=== PATIENT | female | born 1980 | race Caucasian/White ===

== ENCOUNTER 2025-08-01 08:55 | Emergency (ER) | payer OTHER ==
[~2025-08-01] VITALS: Ht 167.6 cm; Wt 72.1 kg
[2025-08-01] MEDS ORDERED: ASPIRIN 325 MG TABLET ONE (09:11)
[2025-08-01] MEDS: ASPIRIN 325 MG TABLET PO ONE (09:15)
[2025-08-01 09:29] LABS: PLATELET COUNT (AUTO) 280 K/uL (150-450); RED BLOOD CELL COUNT(AUTO) 4.65 MIL/uL (4.0-5.2); RED CELL DISTRIBUTION WIDTH 13.2 % (11.5-15.0); WHITE BLOOD COUNT (AUTO) 10.9 K/uL (4.3-11.0)
[2025-08-01 09:33] LABS: PREGNANCY TEST URINE QUAL NEGATIVE (NEGATIVE)
[2025-08-01 09:35] LABS: CALCIUM, SERUM 9.8 mg/dL (8.5-10.1); CREATININE 0.7 mg/dL (0.6-1.3); SODIUM SERUM 136 mmol/L (136-145); UREA NITROGEN, BLOOD 8 mg/dL (7-18)
[2025-08-01 09:40] LABS: AMPHETAMINE, URINE NEGATIVE (NEGATIVE); BARBITURATE, URINE NEGATIVE (NEGATIVE); BENZODIAZEPINE, URINE NEGATIVE (NEGATIVE); CANNABINOID, URINE NEGATIVE (NEGATIVE); COCCAINE, URINE NEGATIVE (NEGATIVE); OPIATE, URINE NEGATIVE (NEGATIVE)
[2025-08-01 09:48] LABS: NT-PRO BNP 23 pg/mL (0-125)
[2025-08-01] MEDS ORDERED: IV NS 0.9% 250 ML IV ONE (10:07)
[2025-08-01] MEDS ORDERED: IOHEXOL-350 100 ML VIAL IV ONE (10:07)
[2025-08-01] MEDS ORDERED: CT SWABBABLE VALVE TRANS SET 1 EA INFUS.SET MC ONE (10:07)
[2025-08-01] MEDS ORDERED: KETOROLAC TROMETHAMINE INJ 30 MG/ML VIAL ONE (11:57)
[2025-08-01] MEDS: KETOROLAC TROMETHAMINE INJ 30 MG/ML VIAL IV ONE (12:00)
[2025-08-01 13:53] VITALS: BP 118/78; TEMP 98.1; O2SAT 99
== END 2025-08-01 13:53 | disposition short-term general hospital (02) ==
LOC: EDBD 09:07 → ER 09:07
DX: R00.2 Palpitations (principal); R07.9 Chest pain, unspecified; R55 Syncope and collapse; R06.02 Shortness of breath; Z79.899 Other long term (current) drug therapy
CPT/HCPCS: 99285; 71275; 93005; 85025; 80048; 83735; 85378; 84703; 36415; 84439; 84443; 84484; 83880; 80307; J7050; Q9967; J1885